=== PATIENT | female | born 1990 | race Caucasian/White ===

== ENCOUNTER 2016-11-23 18:09 | Inpatient (IN) | payer OTHER ==
[~2016-11-23] VITALS: Ht 165.1 cm; Wt 99.0 kg
[~2016-11-23 18:09] MED LIST: ACET50TA PO; IBUP80TA PO; NUPE1OIN2 TOP; PRENTAB55 PO; PROZ20CA11 PO
[2016-11-23 18:23] VITALS: BP 129/69
[2016-11-23 18:47] VITALS: BP 128/59
[2016-11-23] MEDS ORDERED: LACTATED RINGER'S 1000 ML IV ONE (19:15)
[2016-11-23] MEDS ORDERED: LR 1,000 ML IV SCH (19:30)
[2016-11-23 19:34] LABS: MEAN CORPUSCULAR HEMOGLOBIN 24.6 pg (27.0-33.0); MEAN CORPUSCULAR HGB CONC 32.7 g/dl (32.0-36.5); MEAN CORPUSCULAR VOLUME 75.1 fl (80.0-96.0); RED CELL DISTRIBUTION WIDTH 15.2 % (11.5-14.5); WHITE BLOOD COUNT 8.6 K/mm3 (4.0-10.0)
[2016-11-23 19:39] LABS: CALCIUM OXALATE CRYSTALS SMALL
[2016-11-23 20:04] LABS: ALT/SGPT 16 U/L (12-78); AST/SGOT 12 U/L (15-37); BILIRUBIN,TOTAL 0.2 MG/DL (0.2-1.0); CREATININE FOR GFR 0.59 MG/DL (0.55-1.02); GLOMERULAR FILTRATION RATE > 60.0 (>60); URIC ACID 3.4 MG/DL (2.6-6.0)
[2016-11-23] MEDS ORDERED: miSOPROStol 25 MCG 1/4 TAB (S0191) PO SCH (20:45)
--- NOTE | 2016-11-23 21:29 | HPE ---
DATE OF ADMISSION: 11/23/2016 HISTORY: This lady is a 26-year-old 2, para 1, LMP 02/03/2016, EDC 11/29/2016 at 39 weeks of gestation. Had a history of two mid range blood pressures in the office; was collecting a 24-hour urine. Had nausea, vomiting and headache which were unretractable and was having a fever. Her past history is in 2014 at 38 weeks spontaneous vaginal delivery male, 8 pounds 3 ounces. 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 Her risk factors today is she has got pre-eclampsia, a urinary tract infection, a fever, nausea, vomiting and headache. Labs show A+, HIV negative, hepatitis negative, RPR negative, rubella immune. Varicella immune. Pap normal. Urine negative. Gonorrhea and chlamydia are negative. 1-hour glucose 108. GBS is negative. Hemoglobin 10.9, hematocrit 33.5, platelets are 240. Urine is 10/30, pH 5, +1 protein, plus ketones, 2+ luekocytes, 2+ bacteria. Her pre-eclampsia profile, uric acid is 3.4. The rest is normal. Her protein creatinine ratio is 0.29 suggestive of collecting 24-hour urine. Blood pressure on admission here is 129/69, respirations are 24, pulse 102, temperature 99. She is simone, and has a category one strip. She does have a frontal headache. No visual disturbances or right upper quadrant pain and no edema. Her reflexes upper and lower are normal. There is no clonus. On pelvic examination cervix is anterior, 2-3 cm, -2 station, 80% effaced, with bulging membranes and she has a category one strip. The rest of the examination; she is normocephalic, atraumatic. Neck: Full range of motion. Pupils equal and reactive to light. Distal pulses symmetric. Chest is clear bilaterally to bases. No wheezes or rhonchi. No CVA tenderness. Symphysis fundus height is appropriate, 39 cm, nontender and four quadrant bowel sounds are noted. No rashes, lesions or pruritus. No arthralgia, myalgia. She is not complaining of cough, wheeze, shortness of breath or dyspnea on exertion. She is complaining of a headache. She does not have chest pain. She is not bleeding. She is neuro complete. No incontinence, urgency, frequency, no nausea, vomiting, diarrhea or constipation. Does not smoke or drink, does not abuse drugs. She is . There is no domestic violence. In summary we have a term gestation with possibly pre-eclampsia, urinary tract infection. She does have a bit of fever and headache. PLAN OF MANAGEMENT: Hydrate the patient, antibiotic coverage for UTI, induction of labor with Cytotec, epidural consultation with anesthesia regarding her previous epidural experience with nerve damage. We do anticipate vaginal delivery. We expressed the risks and benefits of induction of labor, the history of pre-eclampsia and the possibility of need for induction later on as opposed to presently. However with the indication of 0.29, headache, nausea and vomiting and elevated temperature with possible UTI; induction of labor is recommended. and expressed understanding of the plan of management.
[2016-11-23] MEDS ORDERED: miSOPROStol 50 MCG 1/2 TAB (S0191) PO SCH (23:00)
[2016-11-24] MEDS ORDERED: FENTANYL 2MCG/ML ROPIVACAINE 0.2% NACL 250 ML CADD As Ordered ONE (04:33)
[2016-11-24] MEDS ORDERED: OXYTOCIN DRIP 30 UNITS in APPROPRIATE DILUENT 1 EA IV SCH (04:45)
[2016-11-24] MEDS ORDERED: FENTANYL/ROPIVACAINE/NACL CADD 250 ML EPIDURAL SCH (04:55)
[2016-11-24] MEDS ORDERED: ONDANSETRON 4MG/2ML VIAL (J2405) IV PRN (04:55)
[2016-11-24] MEDS ORDERED: EPIDURAL COMMENT XX SCH (04:55)
[2016-11-24] MEDS ORDERED: EPIDURAL/PCA KEYS XX PRN (04:55)
[2016-11-24] MEDS ORDERED: REFRIGERATOR IV KEYS XX PRN (04:55)
[2016-11-24] MEDS ORDERED: diphenhydrAMINE INJ 50MG/ML VIAL (J1200) IV PRN (04:55)
[2016-11-24] MEDS ORDERED: LACTATED RINGER'S 1000 ML IV PRN (04:55)
[2016-11-24] MEDS ORDERED: NALOXONE INJ 0.4 MG/1 ML VIAL (J2310) IV PRN (04:55)
[2016-11-24] MEDS ORDERED: ePHEDrine SULFATE 25 MG/5 ML(5MG/ML) SYRINGE IV PRN (04:55)
[2016-11-24] MEDS ORDERED: MEASLES,MUMPS,RUBELLA VACCINE INJ (MMR-II) (90707) SC SCH (07:15)
[2016-11-24] MEDS ORDERED: RHOGAM 300 MCG (1500 IU) INJ (J2790) IM SCH (07:15)
[2016-11-24] MEDS ORDERED: IBUPROFEN 800 MG TAB PO PRN (07:15)
[2016-11-24] MEDS ORDERED: METHYLERGONOVINE MALEATE 0.2 MG TAB PO PRN (07:15)
[2016-11-24] MEDS ORDERED: ACETAMINOPHEN 500 MG TAB PO PRN (07:15)
[2016-11-24] MEDS ORDERED: ANUSOL HC CREAM 30GM TOP PRN (07:15)
[2016-11-24] MEDS ORDERED: DOCUSATE SODIUM 100 MG CAP PO PRN (07:15)
[2016-11-24] MEDS ORDERED: MOM 30ML SUSPENSION UDC PO PRN (07:15)
[2016-11-24] MEDS ORDERED: DIBUCAINE 1% OINTMENT 30GM TOP PRN (07:15)
[2016-11-24 07:21] VITALS: BP 127/56
[2016-11-24 07:28] LABS: CORD GAS ABE A -5.4; CORD GAS HCO3 A 22.1 MEQ/L; CORD GAS O2 SAT A 48.4 %; CORD GAS PCO2 A 50.1 mmHg; CORD GAS PH A 7.262 UNITS; CORD GAS PO2 A 23.4 mmHg; CORD GAS SBC A 18.9 MEQ/L; CORD GAS TCO2 A 23.6 MEQ/L
[2016-11-24 07:30] LABS: CORD GAS ABE V -1.5; CORD GAS HCO3 V 23.1 MEQ/L; CORD GAS O2 SAT V 86.4 %; CORD GAS PCO2 V 38.6 mmHg; CORD GAS PH V 7.394 UNITS; CORD GAS PO2 V 40.9 mmHg; CORD GAS SBC V 22.9 MEQ/L; CORD GAS TCO2 V 24.2 MEQ/L
--- NOTE | 2016-11-24 07:35 | DN ---
DATE OF DELIVERY: 11/24/2016 This lady is a 26-year-old 2, now para 2 who was admitted for induction of labor with preeclampsia. She had an epidural in place. Spontaneous vaginal delivery of live female weighing 8 pounds 9 ounces, 3894 grams, of 9 and 9 and one and five minutes respectfully. Cord was around the neck once loose. Arterial and venous pH performed. Placenta delivered spontaneously thereafter. Three-vessel cord, membranes and tissues intact. Vagina, cervix, perineum were intact. Uterus contracted well under Pitocin. The patient and baby tolerated procedure well.
[2016-11-24 07:36] VITALS: BP 122/56
[2016-11-24 07:51] VITALS: BP 119/57
[2016-11-24] MEDS ORDERED: OXYTOCIN INJ 10 UNITS/ML VIAL (J2590) IM ONE (08:00)
[2016-11-24 08:30] VITALS: BP 148/67
[2016-11-24] MEDS: PRENATAL VITAMIN TAB PO SCH (09:00)
[2016-11-24 18:15] VITALS: BP 140/59
[2016-11-25 06:00] VITALS: BP 138/83
[2016-11-25 06:58] LABS: MEAN CORPUSCULAR HEMOGLOBIN 24.9 pg (27.0-33.0); MEAN CORPUSCULAR HGB CONC 32.5 g/dl (32.0-36.5); MEAN CORPUSCULAR VOLUME 76.8 fl (80.0-96.0); RED CELL DISTRIBUTION WIDTH 15.5 % (11.5-14.5); WHITE BLOOD COUNT 8.1 K/mm3 (4.0-10.0)
[2016-11-25] MEDS: PRENATAL VITAMIN TAB PO SCH (07:34)
[2016-11-25] MEDS ORDERED: COLA100C PO (09:33)
[2016-11-25] MEDS ORDERED: ANUS2.5C2 PR (09:33)
== END 2016-11-25 13:30 | disposition home or self-care (01) | DRG 775 ==
LOC: M LDO 18:09 → M LDI 20:28 → M OBS 11-24 08:31
PROVIDERS: ADMIT Obstetrics & Gynecology; ATTEND Obstetrics & Gynecology
PROC: 3E0P7GC Introduction of Other Therapeutic Substance into Female Reproductive, Via Natural or Artificial Opening (ICD-10-PCS; 2016-11-23)
PROC: 10E0XZZ Delivery of Products of Conception, External Approach (ICD-10-PCS; principal; 2016-11-24)
DX: O14.94 Unspecified pre-eclampsia, complicating childbirth (principal); Z37.0 Single live birth; Z3A.39 39 weeks gestation of pregnancy; O23.43 Unspecified infection of urinary tract in pregnancy, third trimester